=== PATIENT | male | born 1940 | race Hispanic/Latino ===

== ENCOUNTER 2018-07-11 02:11 | Emergency (ER) | payer MEDICARE ==
[2018-07-11 02:11] VITALS: BMI 36.7
[2018-07-11 02:35] VITALS: TEMP 97.8
[2018-07-11 02:35] LABS: BASO # 0.03 K/mm3 (0.0-2.0); BASO % 0.4 % (0.0-3.0); EOS # 0.1 (0.0-0.7); EOS % 1.8 % (1.5-5.0); HEMOGLOBIN 13.8 g/dL (14.0-18.0); LYMPH # 2.4 (1.2-3.4); LYMPH % 34.6 % (22.0-35.0); MEAN CELL VOLUME 93.6 fl (80.0-105.0); MEAN CORPUSCULAR HEMOGLOBIN 31.7 pg (25.0-35.0); MEAN CORPUSCULAR HGB CONC 33.8 g/dl (31.0-37.0); MEAN PLATELET VOLUME 9.5 fl (7.0-11.0); MONO # 0.4 (0.1-0.6); MONO % 5.6 % (1.0-6.0); RBC 4.36 10^6/uL (3.5-6.1); RED CELL DISTRIBUTION WIDTH 13.5 % (11.5-14.5); WHITE BLOOD COUNT 6.8 10^3/uL (4.5-11.0)
--- NOTE | 2018-07-11 02:40 | ED PDOC ---
Arrival/HPI - General Chief Complaint: Dizziness/Lightheaded Time Seen by Provider: 07/11/18 02:11 Historian: Patient - History of Present Illness Narrative History of Present Illness (Text): 07/11/18 02:42 77 year old male, with past medical history of a pace maker, CAD, and hypertension presents to emergency department for dizziness after waking up in the middle of the night prior to arrival. Patient states he "saw the clock moving." He cannot characterize his symptoms but denies any fevers, pains, or any other complaints. Time/Duration: Prior to Arrival Symptom Onset: Gradual Symptom Course: Unchanged Activities at Onset: Light Context: Home Past Medical History - Provider Review Nursing Documentation Reviewed: Yes - Infectious Disease Hx of Infectious Diseases: None - Cardiac Hx Cardiac Disorders: Yes Hx Hypertension: Yes Hx Pacemaker: Yes Hx Peripheral Edema: Yes - Pulmonary Hx Respiratory Disorders: Yes Hx Asthma: Yes - Neurological Hx Neurological Disorder: Yes (syncope) - HEENT Hx HEENT Disorder: Yes ([place] b/l hearing aids) Hx Cataracts: Yes (b/l sx) Hx Macular Degeneration: Yes - Renal Hx Renal Disorder: No Hx Dialysis: No - Endocrine/Metabolic Hx Endocrine Disorders: No - Hematological/Oncological Hx Blood Disorders: No Hx Cancer: Yes (basal cell skin ca r wrist left chest) Hx Chemotherapy: No - Integumentary Hx Basal Cell Carcinoma: Yes (r wrist left chest lesions removed) - Musculoskeletal/Rheumatological Hx Falls: No - Gastrointestinal Hx Gastrointestinal Disorders: No - Genitourinary/Gynecological Hx Genitourinary Disorders: No - Psychiatric Hx Psychophysiologic Disorder: No Hx Anxiety: No Hx Emotional Abuse: No Hx Physical Abuse: No Hx Substance Use: No - Surgical History Hx Coronary Stent: Yes (x3) Other/Comment: pylonidal cyst age 21 - Anesthesia Hx Anesthesia: No Hx Anesthesia Reactions: No Hx Malignant Hyperthermia: No - Suicidal Assessment Feels Threatened In Home Enviroment: No Family/Social History - Physician Review Nursing Documentation Reviewed: Yes Family/Social History: Unknown Family HX Smoking Status: Former Smoker Hx Alcohol Use: No Hx Substance Use: No Allergies/Home Meds Allergies/Adverse Reactions: Allergies No Known Allergies Allergy (Verified 07/11/18 02:18) Home Medications: Home Meds Medication Instructions Recorded Confirmed Aspirin [Ecotrin] 1 tab PO DAILY 07/11/18 07/11/18 Atorvastatin [Lipitor] 20 mg PO DAILY 07/11/18 07/11/18 Carvedilol [Coreg] 1 tab PO BID 07/11/18 07/11/18 Fluticasone Propionate [Flovent 1 puff IH BID 07/11/18 07/11/18 Hfa] Lutein 1 tab PO DAILY 07/11/18 07/11/18 Multivit-Min/FA/Lycopen/Lutein 1 tab PO DAILY 07/11/18 07/11/18 [Centrum Silver Tablet] [place]-3 Fatty Acids/Fish Oil [Fish 1 tab PO DAILY 07/11/18 07/11/18 Oil 1,000 mg Capsule] Review of Systems - Physician Review All systems were reviewed & negative as marked: Yes - Review of Systems Constitutional: absent: Fevers Respiratory: absent: SOB, Cough Cardiovascular: absent: Chest Pain Gastrointestinal: absent: Abdominal Pain, Diarrhea, Nausea, Vomiting Genitourinary Male: absent: Urinary Output Changes Musculoskeletal: absent: Back Pain Skin: absent: Rash Neurological: Dizziness. absent: Headache Physical Exam Vital Signs Reviewed: Yes Temperature: Afebrile Blood Pressure: Normal Pulse: Regular Respiratory Rate: Normal Appearance: Positive for: Well-Appearing, Non-Toxic, Comfortable Pain Distress: None Mental Status: Positive for: Alert and Oriented X 3 - Systems Exam Head: Present: Atraumatic, Normocephalic Pupils: Present: PERRL Extroacular Muscles: Present: EOMI Conjunctiva: Present: Normal Mouth: Present: Moist Mucous Membranes Neck: Present: Normal Range of Motion Respiratory/Chest: Present: Clear to Auscultation, Good Air Exchange. No: Respiratory Distress, Accessory Muscle Use Cardiovascular: Present: Regular Rate and Rhythm, Normal S1, S2. No: Murmurs Abdomen: No: Tenderness, Distention, Peritoneal Signs Back: Present: Normal Inspection Upper Extremity: Present: Normal Inspection. No: Cyanosis, Edema Lower Extremity: Present: Normal Inspection. No: Edema Neurological: Present: GCS=15, CN II-XII Intact, Speech Normal Skin: Present: Warm, Dry, Normal Color. No: Rashes Psychiatric: Present: Alert, Oriented x 3, Normal Insight, Normal Concentration Medical Decision Making ED Course and Treatment: 07/11/18 02:20 Impression: 77 year old male presents to emergency department for dizziness after waking up in the middle of the night prior to arrival. rocardiac metabolci intracrnail einfectious etiology Plan: -- CT Head -- EKG -- Labs -- Chest X-ray -- Urinalysis -- Reassess and disposition Prior Visits: Notes and results from previous visits were reviewed. Progress Notes: 07/11/18 02:20 EKG: Ordered, reviewed, and independently interpreted the EKG. Rate : 66 BPM Interpretation : pace rhythm 07/11/18 02:55 Chest X-ray, reviewed by radiologist: Impression: No acute disease 07/11/18 04:09 no urinary symptoms. 07/11/18 04:13 in er pt in nad. ct neg. [employer] pacemaker interogatted. no events. labs neg. no uarinry symptoms prefers to go home and return with worsening rather than overnight obs. 07/11/18 04:20 CT Head, reviewed by radiologist: IMPRESSION: 1. Age-appropriate cerebellar and cerebral atrophy. 2. Mild chronic microvascular disease. 3. No evidence of acute intracranial pathology. 4. Minimal left mastoid effusion. 5. Minimal secretions in the right maxillary sinus. Thank you for your kind referral of this patient. Electronically signed on Jul 11, 2018 3:45:34 AM EDT by: Rios Jones M.D., Certified by JORDI, BENNY, Neuroradiology 07/11/18 05:26 - Scribe Statement The provider has reviewed the documentation as recorded by the Scribe Diamante Mooney All medical record entries made by the Scribe were at my direction and personally dictated by me. I have reviewed the chart and agree that the record accurately reflects my personal performance of the history, physical exam, medical decision making, and the department course for this patient. I have also personally directed, reviewed, and agree with the discharge instructions and disposition. Disposition/Present on Arrival - Present on Arrival Any Indicators Present on Arrival: No History of DVT/PE: No History of Uncontrolled Diabetes: No Urinary Catheter: No History of Decub. Ulcer: No History Surgical Site Infection Following: None - Disposition Have Diagnosis and Disposition been Completed?: Yes Diagnosis: Dizziness Disposition: HOME/ ROUTINE Disposition Time: 02:00 Condition: STABLE Discharge Instructions (ExitCare): Dizziness, Nonvertigo, (DC) Additional Instructions: return to er with worsening. please followup with your doctor/clinic. you are decling overnight observation in the hospital. return to any er with worsening. Referrals: Tomas Saunders MD [Staff Provider] - Follow up with primary Neel Salter MD [Staff Provider] - Follow up with primary Forms: [employer] (Pashto)
[2018-07-11 02:42] LABS: INR 1.16; PARTIAL THROMBOPLASTIN TIME 31.6 Seconds (26.9-38.3); PROTHROMBIN TIME 12.9 SECONDS (9.4-12.5)
[2018-07-11 02:50] LABS: ALB/GLOB RATIO 1.2 (1.1-1.8); ALBUMIN 3.9 g/dL (3.0-4.8); ALT/SGPT 18 U/L (7-56); AST/SGOT 28 U/L (17-59); BLOOD UREA NITROGEN 12 mg/dL (7-21); CALCIUM 9.2 mg/dL (8.4-10.5); GFR NON-AFRICAN AMERICAN > 60
[2018-07-11 03:02] LABS: TROPONIN I < 0.01 ng/mL
[2018-07-11 03:40] LABS: URINE BILIRUBIN NEGATIVE (NEGATIVE); URINE BLOOD NEGATIVE (NEGATIVE); URINE GLUCOSE (UA) NEGATIVE (NEGATIVE); URINE LEUKOCYTE ESTERASE MODERATE Leu/uL (NEGATIVE); URINE PROTEIN NEGATIVE mg/dL (<30 mg/dL); URINE UROBILINOGEN 0.2 E.U./dL (<1 E.U./dL)
[2018-07-11 03:43] LABS: URINE APPEARANCE CLEAR (CLEAR); URINE COLOR LIGHT YELLOW (YELLOW)
[2018-07-11 04:06] LABS: URINE BACTERIA MANY /hpf; URINE EPITHELIAL CELLS 0 - 2 /hpf (0-5); URINE RBC 0 - 2 /hpf (0-2)
[2018-07-11 04:16] VITALS: BP 112/56; PULSE 66; RESP 16; O2SAT 95
--- NOTE | 2018-07-11 08:47 | CT ---
Date of service: 07/11/2018 PROCEDURE: CT HEAD WITHOUT CONTRAST. HISTORY: dizziness/near syncope COMPARISON: 04/06/2016 TECHNIQUE: Axial computed tomography images were obtained through the head/brain without intravenous contrast. Radiation dose: Total exam DLP = 902.54 mGy-cm. This CT exam was performed using one or more of the following dose reduction techniques: Automated exposure control, adjustment of the mA and/or kV according to patient size, and/or use of iterative reconstruction technique. FINDINGS: HEMORRHAGE: No intracranial hemorrhage. BRAIN: No mass effect or edema. No atrophy or chronic microvascular ischemic changes. VENTRICLES: Unremarkable. No hydrocephalus. CALVARIUM: Unremarkable. PARANASAL SINUSES: Partial opacification of right maxillary sinus. MASTOID AIR CELLS: Unremarkable as visualized. No inflammatory changes. OTHER FINDINGS: The report concurs with the preliminary [facility] report IMPRESSION: No acute intracranial findings
--- NOTE | 2018-07-11 10:57 | RAD ---
Date of service: 07/11/2018 HISTORY: near syncope COMPARISON: 04/06/2016 TECHNIQUE: 1 view obtained. FINDINGS: LUNGS: No active pulmonary disease. PLEURA: No significant pleural effusion identified, no pneumothorax apparent. CARDIOVASCULAR: No aortic atherosclerotic calcification present. Normal cardiac size. No pulmonary vascular congestion. OSSEOUS STRUCTURES: No significant abnormalities. VISUALIZED UPPER ABDOMEN: Normal. OTHER FINDINGS: None. IMPRESSION: No active disease.
--- NOTE | 2018-07-11 19:25 | CARD ---
APPROVED REPORT Date of service: 07/11/2018 EKG Measurement Heart [id number] <Conclusion> Electronic ventricular pacemaker- questionable sensing malfunction NSR with first degree AVB Left axis deviation [id number] Abnormal ECG
== END 2018-07-11 04:16 | disposition home or self-care (01) ==
LOC: ED 02:11
DX: R42 Dizziness and giddiness (principal); I10 Essential (primary) hypertension; I25.10 Atherosclerotic heart disease of native coronary artery without angina pectoris; Z87.891 Personal history of nicotine dependence; Z95.0 Presence of cardiac pacemaker